=== PATIENT | female | born 1960 | race Caucasian/White ===

== ENCOUNTER 2022-03-09 12:48 | Inpatient (IN) ==
[2022-03-09 17:04] LABS: Albumin 3.7 G/DL (3.4-5.0); Bilirubin,Total 0.5 MG/DL (0.20-1.00); Calcium 9.3 MG/DL (8.5-10.1); Osmolality,Calculated 282.2 MOS/KG (273-304); Potassium 4.2 MMOL/L (3.5-5.1); Total Protein 7.5 G/DL (6.4-8.2)
[2022-03-09] MEDS ORDERED: SODIUM CHLORIDE 0.9% 1,000 ML IV STA (17:18)
[2022-03-09 17:26] LABS: Basophils # 0.1 10*3/uL (0.0-0.2); Eosinophils # 0.1 10*3/uL (0.0-0.87); Eosinophils % 1.3 % (0.00-10.9); Hematocrit 42.8 VOL% (35.7-47.0); Immature Granulocytes % 0.5 %; Immature Granulocytes Absolute 0.03 #; Lymphocytes # 1.9 10*3/uL (1.4-4.0); Lymphocytes % 31.5 % (21.3-54.2); Mean Corpuscular HGB Conc 32.7 GM/DL (32-36); Mean Corpuscular Volume 87.7 FL (87-102); Mean Platelet Volume 11.6 FL (9.6-12.0); Monocytes # 0.5 10*3/uL (0.11-0.8); Monocytes % 8.8 % (1.7-12.7); Neutrophils % 56.9 % (38.7-73.9); Platelet Count 221 T/CUMM (130-400); Red Blood Count 4.88 MC/CUMM (3.8-5.5); Red Cell Distribution Width 13.9 % (9.3-17.3); White Blood Count 6.1 T/CUMM (4-12)
[2022-03-09 17:35] LABS: INR 0.9; PT Patient Result 9.9 SECS (10.5-12.0); Partial Thromboplastin Time 21.5 SECS (23.7-32.9)
[2022-03-09 17:42] LABS: Bilirubin,Urine Negative (Negative); Blood, Urine Trace mg/dL (Negative); Glucose,Urine (UA) 500 mg/dL (Negative); Ketones,Urine 40 mg/dL (Negative); Nitrite,Urine Negative (Negative); Protein,Urine Negative (Negative); Urine Appearance Slightly Cloudy (Clear); Urine Color Yellow (Yellow); Urine Urobilinogen 0.2 eU/dL (<2.0); Urine pH 5.5 (4.5-8.0)
[2022-03-09 17:47] LABS: Mucus,Urine Occasional /LPF (Occasional); RBC,Urine 8 /HPF (0-4); Squamous Epithelial Cell,Urine Occasional /HPF (0-10)
[2022-03-09] MEDS ORDERED: KETOROLAC 30 MG/1 ML VIAL IV STA (17:48)
[2022-03-09] MEDS ORDERED: cloNIDine 0.1 MG TABLET PO STA (18:56)
[2022-03-09] MEDS ORDERED: INSULIN REGULAR 100 UNIT/ML IV STA (19:06)
[2022-03-09] MEDS ORDERED: GLUCAGON 1 MG VIAL IM PRN (19:28)
[2022-03-09] MEDS ORDERED: DOCUSATE SODIUM 100 MG CAPSULE PO PRN (19:28)
[2022-03-09] MEDS ORDERED: DEXTROSE 10% 250 ML BAG IV PRN (19:34)
[2022-03-09] MEDS ORDERED: DEXTROSE 50% 25 GM/50 ML VIAL IV PRN (19:38)
[2022-03-09] MEDS: ATORVASTATIN 40 MG TABLET PO SCH (22:52)
[2022-03-09] MEDS: ENOXAPARIN 40 MG/0.4 ML SYRINGE SUBCUT SCH (22:52)
[2022-03-09] MEDS: METOPROLOL TARTRATE 50 MG TABLET PO SCH (22:52)
[2022-03-09] MEDS: INSULIN GLARGINE 100 UNIT/ML SUBCUT SCH (22:53)
[2022-03-09] MEDS: MORPHINE 2 MG/1 ML SYRINGE IV PRN (22:58)
[2022-03-10] MEDS: MORPHINE 2 MG/1 ML SYRINGE IV PRN ×2 (03:01→12:54)
[2022-03-10 05:51] LABS: Basophils % 0.8 % (0.0-0.8); Eosinophils # 0.1 10*3/uL (0.0-0.87); Eosinophils % 1.8 % (0.00-10.9); Hematocrit 37.3 VOL% (35.7-47.0); Hemoglobin 12.1 GM/DL (12.0-16.0); Immature Granulocytes % 0.4 %; Immature Granulocytes Absolute 0.02 #; Lymphocytes # 2.2 10*3/uL (1.4-4.0); Lymphocytes % 43.8 % (21.3-54.2); Mean Corpuscular HGB Conc 32.4 GM/DL (32-36); Mean Corpuscular Volume 87.8 FL (87-102); Mean Platelet Volume 11.8 FL (9.6-12.0); Monocytes # 0.5 10*3/uL (0.11-0.8); Monocytes % 9.2 % (1.7-12.7); Platelet Count 200 T/CUMM (130-400); Red Blood Count 4.25 MC/CUMM (3.8-5.5); Red Cell Distribution Width 13.8 % (9.3-17.3)
[2022-03-10 06:51] LABS: Hepatitis B Core IgM Quant 0.05 Index; Hepatitis B Surface Ab Result Non-Reactive (NonReactive); Hepatitis B Surface Ag Quant < 0.10 Index; Hepatitis B Surface Ag Result Non-Reactive (NonReactive); Hepatitis C Virus Ab Quant 0.03 Index; Hepatitis C Virus Ab Result Non-Reactive (NonReactive)
[2022-03-10 09:36] LABS: Albumin 2.9 G/DL (3.4-5.0); Bilirubin,Total 0.4 MG/DL (0.20-1.00); Calcium 8.5 MG/DL (8.5-10.1); Osmolality,Calculated 281.8 MOS/KG (273-304); Potassium 3.4 MMOL/L (3.5-5.1); Total Protein 5.7 G/DL (6.4-8.2)
[2022-03-10] MEDS: INSULIN LISPRO 100 UNIT/ML SUBCUT SCH ×3 (10:01→17:09)
[2022-03-10] MEDS: PANTOPRAZOLE 40 MG VIAL IV SCH (10:01)
[2022-03-10] MEDS: FUROSEMIDE 40 MG/4 ML VIAL IV SCH (10:02)
[2022-03-10] MEDS: METOPROLOL TARTRATE 50 MG TABLET PO SCH ×2 (10:02→22:27)
[2022-03-10] MEDS: SERTRALINE 50 MG TABLET PO SCH (10:02)
[2022-03-10] MEDS: AMIODARONE 200 MG TABLET PO SCH (10:02)
[2022-03-10] MEDS: POTASSIUM CHLORIDE 20 MEQ TABLET PO SCH (10:03)
[2022-03-10] MEDS: ISOSORBIDE MONONITRATE 30 MG TABLET PO SCH (10:03)
[2022-03-10] MEDS: DILTIAZEM CD 240 MG CAPSULE PO SCH (10:03)
[2022-03-10] MEDS: ONDANSETRON 4 MG/2 ML VIAL IV PRN (12:56)
[2022-03-10] MEDS: ENOXAPARIN 40 MG/0.4 ML SYRINGE SUBCUT SCH (22:27)
[2022-03-10] MEDS: ATORVASTATIN 40 MG TABLET PO SCH (22:27)
[2022-03-10] MEDS: INSULIN GLARGINE 100 UNIT/ML SUBCUT SCH (22:33)
[2022-03-10] MEDS: ACETAMINOPHEN 325 MG TABLET PO PRN (23:32)
[2022-03-11 05:16] LABS: Basophils # 0.1 10*3/uL (0.0-0.2); Basophils % 0.8 % (0.0-0.8); Eosinophils # 0.1 10*3/uL (0.0-0.87); Eosinophils % 1.4 % (0.00-10.9); Hematocrit 38.4 VOL% (35.7-47.0); Hemoglobin 12.4 GM/DL (12.0-16.0); Immature Granulocytes % 0.5 %; Immature Granulocytes Absolute 0.03 #; Lymphocytes # 2.3 10*3/uL (1.4-4.0); Lymphocytes % 36.1 % (21.3-54.2); Mean Corpuscular HGB Conc 32.3 GM/DL (32-36); Mean Corpuscular Volume 88.1 FL (87-102); Mean Platelet Volume 11.2 FL (9.6-12.0); Monocytes # 0.7 10*3/uL (0.11-0.8); Monocytes % 10.7 % (1.7-12.7); Neutrophils % 50.5 % (38.7-73.9); Platelet Count 202 T/CUMM (130-400); Red Blood Count 4.36 MC/CUMM (3.8-5.5); Red Cell Distribution Width 13.7 % (9.3-17.3); White Blood Count 6.4 T/CUMM (4-12)
[2022-03-11 05:28] LABS: Alanine Aminotransferase 46 U/L (13-56); Albumin 2.8 G/DL (3.4-5.0); Alkaline Phosphatase 64 U/L (45-117); Aspartate Amino Transferase 19 U/L (0-37); Bilirubin,Total < 0.39 MG/DL (0.20-1.00); Blood Urea Nitrogen 21 MG/DL (7-18); Calcium 8.6 MG/DL (8.5-10.1); Carbon Dioxide 28 MMOL/L (21-32); Chloride 104 MMOL/L (98-107); Glucose 340 MG/DL (74-106); Osmolality,Calculated 290.7 MOS/KG (273-304); Potassium 3.4 MMOL/L (3.5-5.1); Sodium 138 MMOL/L (136-145); Total Protein 5.5 G/DL (6.4-8.2)
[2022-03-11] MEDS: INSULIN LISPRO 100 UNIT/ML SUBCUT SCH ×2 (11:22→14:26)
[2022-03-11] MEDS ORDERED: DEXTROSE 10% 250 ML BAG IV PRN (11:51)
[2022-03-11] MEDS ORDERED: INSULIN REGULAR 100 UNIT/ML SUBCUT ONE (11:52)
[2022-03-11] MEDS: INSULIN REGULAR 100 UNIT/ML SUBCUT SCH ×3 (13:03→20:27)
[2022-03-11] MEDS ORDERED: INSULIN GLARGINE 100 UNIT/ML SUBCUT ONE (13:15)
[2022-03-11] MEDS: FUROSEMIDE 40 MG/4 ML VIAL IV SCH (14:26)
[2022-03-11] MEDS: SERTRALINE 50 MG TABLET PO SCH (18:04)
[2022-03-11] MEDS: PANTOPRAZOLE 40 MG VIAL IV SCH (18:04)
[2022-03-11] MEDS: ISOSORBIDE MONONITRATE 30 MG TABLET PO SCH (18:05)
[2022-03-11] MEDS: DILTIAZEM CD 240 MG CAPSULE PO SCH (18:05)
[2022-03-11] MEDS: POTASSIUM CHLORIDE 20 MEQ TABLET PO SCH (18:05)
[2022-03-11] MEDS: AMIODARONE 200 MG TABLET PO SCH (18:05)
[2022-03-11] MEDS: METOPROLOL TARTRATE 50 MG TABLET PO SCH ×2 (18:42→20:26)
[2022-03-11] MEDS: ENOXAPARIN 40 MG/0.4 ML SYRINGE SUBCUT SCH (20:26)
[2022-03-11] MEDS: ATORVASTATIN 40 MG TABLET PO SCH (20:26)
[2022-03-11] MEDS: MORPHINE 2 MG/1 ML SYRINGE IV PRN (20:27)
[2022-03-11] MEDS: INSULIN GLARGINE 100 UNIT/ML SUBCUT SCH (20:27)
[2022-03-11] MEDS: ONDANSETRON 4 MG/2 ML VIAL IV PRN (23:08)
[2022-03-11] MEDS: ACETAMINOPHEN 325 MG TABLET PO PRN (23:08)
[2022-03-12 05:27] LABS: Basophils % 0.5 % (0.0-0.8); Eosinophils # 0.1 10*3/uL (0.0-0.87); Hematocrit 35.1 VOL% (35.7-47.0); Hemoglobin 11.1 GM/DL (12.0-16.0); Immature Granulocytes % 0.2 %; Immature Granulocytes Absolute 0.01 #; Lymphocytes # 2.4 10*3/uL (1.4-4.0); Mean Corpuscular HGB Conc 31.6 GM/DL (32-36); Mean Corpuscular Volume 89.5 FL (87-102); Mean Platelet Volume 11.5 FL (9.6-12.0); Monocytes # 0.5 10*3/uL (0.11-0.8); Monocytes % 8.4 % (1.7-12.7); Neutrophils % 46.9 % (38.7-73.9); Platelet Count 187 T/CUMM (130-400); Red Blood Count 3.92 MC/CUMM (3.8-5.5); Red Cell Distribution Width 14.1 % (9.3-17.3); White Blood Count 5.6 T/CUMM (4-12)
[2022-03-12 05:47] LABS: Alanine Aminotransferase 84 U/L (13-56); Albumin 2.6 G/DL (3.4-5.0); Alkaline Phosphatase 70 U/L (45-117); Aspartate Amino Transferase 55 U/L (0-37); Bilirubin,Total < 0.39 MG/DL (0.20-1.00); Blood Urea Nitrogen 26 MG/DL (7-18); Calcium 8.6 MG/DL (8.5-10.1); Carbon Dioxide 29 MMOL/L (21-32); Chloride 107 MMOL/L (98-107); Glucose 203 MG/DL (74-106); Osmolality,Calculated 293.1 MOS/KG (273-304); Potassium 3.6 MMOL/L (3.5-5.1); Sodium 142 MMOL/L (136-145); Total Protein 5.5 G/DL (6.4-8.2)
[2022-03-12] MEDS ORDERED: GLUCAGON 1 MG VIAL IM PRN (09:54)
[2022-03-12] MEDS ORDERED: DEXTROSE 50% 25 GM/50 ML VIAL IV PRN (09:54)
[2022-03-12] MEDS: DILTIAZEM CD 240 MG CAPSULE PO SCH (10:10)
[2022-03-12] MEDS: INSULIN REGULAR 100 UNIT/ML SUBCUT SCH ×4 (10:10→21:27)
[2022-03-12] MEDS: AMIODARONE 200 MG TABLET PO SCH (10:10)
[2022-03-12] MEDS: ISOSORBIDE MONONITRATE 30 MG TABLET PO SCH (10:10)
[2022-03-12] MEDS: METOPROLOL TARTRATE 50 MG TABLET PO SCH ×2 (10:11→21:27)
[2022-03-12] MEDS: POTASSIUM CHLORIDE 20 MEQ TABLET PO SCH (10:11)
[2022-03-12] MEDS: PANTOPRAZOLE 40 MG VIAL IV SCH (10:11)
[2022-03-12] MEDS: SERTRALINE 50 MG TABLET PO SCH (10:11)
[2022-03-12] MEDS: ATORVASTATIN 40 MG TABLET PO SCH (21:26)
[2022-03-12] MEDS: DOXYCYCLINE HYCLATE 100 MG CAPSULE PO SCH (21:26)
[2022-03-12] MEDS: ENOXAPARIN 40 MG/0.4 ML SYRINGE SUBCUT SCH (21:27)
[2022-03-12] MEDS: MORPHINE 2 MG/1 ML SYRINGE IV PRN (21:27)
[2022-03-12] MEDS: INSULIN GLARGINE 100 UNIT/ML SUBCUT SCH (21:28)
[2022-03-13 05:39] LABS: Basophils # 0.1 10*3/uL (0.0-0.2); Basophils % 0.7 % (0.0-0.8); Eosinophils # 0.1 10*3/uL (0.0-0.87); Eosinophils % 1.7 % (0.00-10.9); Hematocrit 37.1 VOL% (35.7-47.0); Hemoglobin 11.9 GM/DL (12.0-16.0); Immature Granulocytes % 0.5 %; Immature Granulocytes Absolute 0.04 #; Lymphocytes # 3.7 10*3/uL (1.4-4.0); Lymphocytes % 45.2 % (21.3-54.2); Mean Corpuscular HGB Conc 32.1 GM/DL (32-36); Mean Corpuscular Volume 88.8 FL (87-102); Mean Platelet Volume 11.6 FL (9.6-12.0); Monocytes # 0.8 10*3/uL (0.11-0.8); Neutrophils % 41.9 % (38.7-73.9); Platelet Count 240 T/CUMM (130-400); Red Blood Count 4.18 MC/CUMM (3.8-5.5); Red Cell Distribution Width 14.2 % (9.3-17.3); White Blood Count 8.2 T/CUMM (4-12)
[2022-03-13 06:09] LABS: Albumin 2.9 G/DL (3.4-5.0); Bilirubin,Total 0.4 MG/DL (0.20-1.00); Calcium 8.9 MG/DL (8.5-10.1); Osmolality,Calculated 279.5 MOS/KG (273-304); Potassium 3.4 MMOL/L (3.5-5.1); Total Protein 5.9 G/DL (6.4-8.2)
[2022-03-13] MEDS: INSULIN REGULAR 100 UNIT/ML SUBCUT SCH ×4 (07:29→21:32)
[2022-03-13] MEDS: DILTIAZEM CD 240 MG CAPSULE PO SCH (08:26)
[2022-03-13] MEDS: AMIODARONE 200 MG TABLET PO SCH (08:26)
[2022-03-13] MEDS: POTASSIUM CHLORIDE 20 MEQ TABLET PO SCH (08:26)
[2022-03-13] MEDS: ASPIRIN EC 81 MG TABLET PO SCH (08:26)
[2022-03-13] MEDS: ISOSORBIDE MONONITRATE 30 MG TABLET PO SCH (08:26)
[2022-03-13] MEDS: SERTRALINE 50 MG TABLET PO SCH (08:26)
[2022-03-13] MEDS: DOXYCYCLINE HYCLATE 100 MG CAPSULE PO SCH ×2 (08:26→21:31)
[2022-03-13] MEDS: METOPROLOL TARTRATE 50 MG TABLET PO SCH ×2 (08:26→21:32)
[2022-03-13] MEDS: ASCORBIC ACID 500 MG TABLET PO SCH ×2 (08:29→21:32)
[2022-03-13] MEDS ORDERED: PANTOPRAZOLE 40 MG TABLET PO SCH (09:00)
[2022-03-13] MEDS: MORPHINE 2 MG/1 ML SYRINGE IV PRN (21:31)
[2022-03-13] MEDS: INSULIN GLARGINE 100 UNIT/ML SUBCUT SCH (21:32)
[2022-03-13] MEDS: PANTOPRAZOLE 40 MG TABLET PO SCH (21:32)
[2022-03-13] MEDS: ATORVASTATIN 40 MG TABLET PO SCH (21:32)
[2022-03-14 04:16] LABS: Basophils # 0.1 10*3/uL (0.0-0.2); Basophils % 0.7 % (0.0-0.8); Eosinophils # 0.1 10*3/uL (0.0-0.87); Eosinophils % 1.4 % (0.00-10.9); Hemoglobin 11.9 GM/DL (12.0-16.0); Immature Granulocytes % 0.7 %; Immature Granulocytes Absolute 0.06 #; Lymphocytes # 2.6 10*3/uL (1.4-4.0); Lymphocytes % 29.4 % (21.3-54.2); Mean Corpuscular HGB Conc 32.2 GM/DL (32-36); Mean Platelet Volume 10.7 FL (9.6-12.0); Monocytes # 0.8 10*3/uL (0.11-0.8); Monocytes % 8.9 % (1.7-12.7); Neutrophils % 58.9 % (38.7-73.9); Platelet Count 223 T/CUMM (130-400); Red Blood Count 4.11 MC/CUMM (3.8-5.5); Red Cell Distribution Width 14.5 % (9.3-17.3); White Blood Count 8.7 T/CUMM (4-12)
[2022-03-14 04:36] LABS: Calcium 8.8 MG/DL (8.5-10.1); Osmolality,Calculated 280.4 MOS/KG (273-304); Potassium 3.7 MMOL/L (3.5-5.1)
[2022-03-14 04:41] LABS: Alanine Aminotransferase 205 U/L (13-56); Alkaline Phosphatase 82 U/L (45-117); Aspartate Amino Transferase 91 U/L (0-37); Bilirubin,Total < 0.39 MG/DL (0.20-1.00); Blood Urea Nitrogen 20 MG/DL (7-18); Carbon Dioxide 29 MMOL/L (21-32); Chloride 109 MMOL/L (98-107); Glucose 89 MG/DL (74-106); Osmolality,Calculated 280.4 MOS/KG (273-304); Potassium 3.8 MMOL/L (3.5-5.1); Sodium 140 MMOL/L (136-145)
[2022-03-14] MEDS: MORPHINE 2 MG/1 ML SYRINGE IV PRN ×3 (05:46→18:33)
[2022-03-14] MEDS ORDERED: LACTATED RINGERS 1,000 ML IV SCH (08:00)
[2022-03-14] MEDS: INSULIN REGULAR 100 UNIT/ML SUBCUT SCH ×4 (08:09→22:13)
[2022-03-14] MEDS ORDERED: LIDOCAINE 2% 5 ML VIAL ONE (13:21)
[2022-03-14] MEDS ORDERED: propofoL 200 MG/20 ML VIAL IV ONE (13:21)
[2022-03-14] MEDS ORDERED: ONDANSETRON 4 MG/2 ML VIAL ONE (13:48)
[2022-03-14] MEDS: ONDANSETRON 4 MG/2 ML VIAL IV PRN (13:49)
[2022-03-14] MEDS: DILTIAZEM CD 240 MG CAPSULE PO SCH (15:04)
[2022-03-14] MEDS: METOPROLOL TARTRATE 50 MG TABLET PO SCH ×2 (15:04→22:13)
[2022-03-14] MEDS: SERTRALINE 50 MG TABLET PO SCH (17:24)
[2022-03-14] MEDS: ISOSORBIDE MONONITRATE 30 MG TABLET PO SCH (17:24)
[2022-03-14] MEDS: ASPIRIN EC 81 MG TABLET PO SCH (17:24)
[2022-03-14] MEDS: ASCORBIC ACID 500 MG TABLET PO SCH ×2 (17:24→22:13)
[2022-03-14] MEDS: DOXYCYCLINE HYCLATE 100 MG CAPSULE PO SCH ×2 (17:25→22:13)
[2022-03-14] MEDS: PANTOPRAZOLE 40 MG TABLET PO SCH ×2 (17:25→22:13)
[2022-03-14] MEDS: POTASSIUM CHLORIDE 20 MEQ TABLET PO SCH (17:25)
[2022-03-14] MEDS: ATORVASTATIN 40 MG TABLET PO SCH (22:13)
[2022-03-14] MEDS: INSULIN GLARGINE 100 UNIT/ML SUBCUT SCH (22:13)
[2022-03-15] MEDS: MORPHINE 2 MG/1 ML SYRINGE IV PRN (03:59)
[2022-03-15 04:25] LABS: Basophils % 0.5 % (0.0-0.8); Eosinophils # 0.1 10*3/uL (0.0-0.87); Eosinophils % 0.9 % (0.00-10.9); Hematocrit 37.3 VOL% (35.7-47.0); Hemoglobin 11.7 GM/DL (12.0-16.0); Immature Granulocytes % 0.5 %; Immature Granulocytes Absolute 0.04 #; Lymphocytes # 1.3 10*3/uL (1.4-4.0); Lymphocytes % 16.6 % (21.3-54.2); Mean Corpuscular HGB Conc 31.4 GM/DL (32-36); Mean Corpuscular Volume 91.6 FL (87-102); Mean Platelet Volume 10.6 FL (9.6-12.0); Monocytes # 0.7 10*3/uL (0.11-0.8); Monocytes % 9.1 % (1.7-12.7); Neutrophils % 72.4 % (38.7-73.9); Platelet Count 197 T/CUMM (130-400); Red Blood Count 4.07 MC/CUMM (3.8-5.5); Red Cell Distribution Width 14.5 % (9.3-17.3); White Blood Count 7.8 T/CUMM (4-12)
[2022-03-15] MEDS: ONDANSETRON 4 MG/2 ML VIAL IV PRN (04:38)
[2022-03-15 04:47] LABS: Calcium 8.6 MG/DL (8.5-10.1); Osmolality,Calculated 283.7 MOS/KG (273-304)
[2022-03-15 05:00] LABS: Bilirubin,Total 0.4 MG/DL (0.20-1.00); Calcium 8.7 MG/DL (8.5-10.1); Osmolality,Calculated 285.5 MOS/KG (273-304); Total Protein 6.2 G/DL (6.4-8.2)
[2022-03-15] MEDS: INSULIN REGULAR 100 UNIT/ML SUBCUT SCH ×4 (08:21→21:37)
[2022-03-15] MEDS ORDERED: BUPIVACAINE MPF 0.25% 10 ML VIAL ONE ×2 (09:45→13:45)
[2022-03-15] MEDS ORDERED: TISSUE ADHESIVE 1 EACH APPLICATOR TOP ONE ×2 (09:45→13:45)
[2022-03-15] MEDS ORDERED: LIDOCAINE 1%/EPI INJ 20 ML VIAL ONE ×2 (09:45→13:45)
[2022-03-15] MEDS: cefTRIAXone 2,000 MG in SODIUM CHLORIDE 0.9% 100 ML IV SCH (11:27)
[2022-03-15] MEDS: DILTIAZEM CD 240 MG CAPSULE PO SCH (11:27)
[2022-03-15] MEDS: METOPROLOL TARTRATE 50 MG TABLET PO SCH ×2 (11:27→21:37)
[2022-03-15] MEDS: ASPIRIN EC 81 MG TABLET PO SCH (11:27)
[2022-03-15] MEDS: ISOSORBIDE MONONITRATE 30 MG TABLET PO SCH (11:27)
[2022-03-15] MEDS ORDERED: LACTATED RINGERS 1,000 ML IV SCH (13:30)
[2022-03-15] MEDS ORDERED: MIDAZOLAM 2 MG/2 ML VIAL ONE (13:35)
[2022-03-15] MEDS ORDERED: LIDOCAINE 2% 5 ML VIAL ONE (13:35)
[2022-03-15] MEDS ORDERED: fentaNYL 100 MCG/2 ML VIAL ONE (13:35)
[2022-03-15] MEDS ORDERED: propofoL 200 MG/20 ML VIAL IV ONE (13:35)
[2022-03-15] MEDS ORDERED: DEXAMETHASONE 4 MG/1 ML VIAL ONE (13:35)
[2022-03-15] MEDS ORDERED: ONDANSETRON 4 MG/2 ML VIAL ONE (13:35)
[2022-03-15] MEDS ORDERED: KETOROLAC 30 MG/1 ML VIAL ONE (13:35)
[2022-03-15] MEDS ORDERED: ROCURONIUM 50 MG/5 ML VIAL IV ONE (13:35)
[2022-03-15] MEDS ORDERED: SEVOFLURANE 1 UNIT/15 MINUTE INH ONE (13:35)
[2022-03-15] MEDS ORDERED: diphenhydrAMINE 50 MG/1 ML VIAL IV PRN (15:09)
[2022-03-15] MEDS ORDERED: MEPERIDINE 25 MG/1 ML VIAL IV PRN (15:09)
[2022-03-15] MEDS ORDERED: ONDANSETRON 4 MG/2 ML VIAL IV PRN (15:09)
[2022-03-15] MEDS ORDERED: HYDROmorphone 1 MG/1 ML SYRINGE IV PRN (15:09)
[2022-03-15] MEDS ORDERED: PROMETHAZINE INJ 25 MG in SODIUM CHLORIDE 0.9% 50 ML IV PRN (15:09)
[2022-03-15] MEDS: SERTRALINE 50 MG TABLET PO SCH (17:02)
[2022-03-15] MEDS: POTASSIUM CHLORIDE 20 MEQ TABLET PO SCH (17:02)
[2022-03-15] MEDS: ASCORBIC ACID 500 MG TABLET PO SCH ×2 (17:02→21:37)
[2022-03-15] MEDS: PANTOPRAZOLE 40 MG TABLET PO SCH ×2 (17:02→21:37)
[2022-03-15] MEDS: INSULIN GLARGINE 100 UNIT/ML SUBCUT SCH (21:37)
[2022-03-15] MEDS: ATORVASTATIN 40 MG TABLET PO SCH (21:37)
[2022-03-16 05:42] LABS: Basophils % 0.2 % (0.0-0.8); Hematocrit 40.3 VOL% (35.7-47.0); Hemoglobin 12.7 GM/DL (12.0-16.0); Immature Granulocytes % 0.7 %; Immature Granulocytes Absolute 0.06 #; Lymphocytes # 1.2 10*3/uL (1.4-4.0); Lymphocytes % 13.7 % (21.3-54.2); Mean Corpuscular HGB Conc 31.5 GM/DL (32-36); Mean Platelet Volume 11.8 FL (9.6-12.0); Monocytes # 0.7 10*3/uL (0.11-0.8); Monocytes % 7.9 % (1.7-12.7); Neutrophils % 77.5 % (38.7-73.9); Platelet Count 192 T/CUMM (130-400); Red Blood Count 4.43 MC/CUMM (3.8-5.5); Red Cell Distribution Width 14.1 % (9.3-17.3); White Blood Count 8.5 T/CUMM (4-12)
[2022-03-16 05:59] LABS: Calcium 8.9 MG/DL (8.5-10.1); Osmolality,Calculated 288.5 MOS/KG (273-304); Potassium 4.8 MMOL/L (3.5-5.1)
[2022-03-16] MEDS: cefTRIAXone 2,000 MG in SODIUM CHLORIDE 0.9% 100 ML IV SCH (09:35)
[2022-03-16] MEDS: PANTOPRAZOLE 40 MG TABLET PO SCH ×2 (09:36→21:58)
[2022-03-16] MEDS: ASCORBIC ACID 500 MG TABLET PO SCH ×2 (09:36→21:58)
[2022-03-16] MEDS: ISOSORBIDE MONONITRATE 30 MG TABLET PO SCH (09:36)
[2022-03-16] MEDS: ASPIRIN EC 81 MG TABLET PO SCH (09:36)
[2022-03-16] MEDS: POTASSIUM CHLORIDE 20 MEQ TABLET PO SCH (09:37)
[2022-03-16] MEDS: SERTRALINE 50 MG TABLET PO SCH (09:37)
[2022-03-16] MEDS: DILTIAZEM CD 240 MG CAPSULE PO SCH (09:37)
[2022-03-16] MEDS: METOPROLOL TARTRATE 50 MG TABLET PO SCH ×2 (09:37→21:57)
[2022-03-16] MEDS: INSULIN REGULAR 100 UNIT/ML SUBCUT SCH ×4 (09:38→21:58)
[2022-03-16] MEDS: MORPHINE 2 MG/1 ML SYRINGE IV PRN (21:57)
[2022-03-16] MEDS: ATORVASTATIN 40 MG TABLET PO SCH (21:58)
[2022-03-16] MEDS: INSULIN GLARGINE 100 UNIT/ML SUBCUT SCH (21:58)
[2022-03-17 06:12] LABS: Albumin 2.5 G/DL (3.4-5.0); Bilirubin,Total 0.4 MG/DL (0.20-1.00); Calcium 8.4 MG/DL (8.5-10.1); Osmolality,Calculated 283.7 MOS/KG (273-304); Potassium 3.9 MMOL/L (3.5-5.1); Total Protein 5.9 G/DL (6.4-8.2)
[2022-03-17] MEDS: DILTIAZEM CD 240 MG CAPSULE PO SCH (09:06)
[2022-03-17] MEDS: ISOSORBIDE MONONITRATE 30 MG TABLET PO SCH (09:06)
[2022-03-17] MEDS: METOPROLOL TARTRATE 50 MG TABLET PO SCH (09:06)
[2022-03-17] MEDS: ASCORBIC ACID 500 MG TABLET PO SCH (09:06)
[2022-03-17] MEDS: POTASSIUM CHLORIDE 20 MEQ TABLET PO SCH (09:06)
[2022-03-17] MEDS: SERTRALINE 50 MG TABLET PO SCH (09:07)
[2022-03-17] MEDS: INSULIN REGULAR 100 UNIT/ML SUBCUT SCH ×2 (09:07→11:44)
[2022-03-17] MEDS: PANTOPRAZOLE 40 MG TABLET PO SCH (09:07)
[2022-03-17] MEDS: ASPIRIN EC 81 MG TABLET PO SCH (09:07)
[2022-03-17] MEDS: cefTRIAXone 2,000 MG in SODIUM CHLORIDE 0.9% 100 ML IV SCH (09:11)
[2022-03-17 12:33] VITALS: BP 143/80
== END 2022-03-17 12:06 | disposition home or self-care (01) | DRG 417 ==
LOC: N.ED 12:48 → N.TELES 19:28 → SUATTDRO 19:28 → N.TELES 21:53
PROVIDERS: ADMIT Family Medicine; ATTEND Emergency Medicine
PROC: LAPCHOL (2022-03-15 13:57)

== ENCOUNTER 2022-08-07 18:46 | Inpatient (IN) ==
[2022-08-07 19:15] LABS: Basophils # 0.1 10*3/uL (0.0-0.2); Basophils % 1.2 % (0.0-0.8); Eosinophils # 0.4 10*3/uL (0.0-0.87); Eosinophils % 5.5 % (0.00-10.9); Hemoglobin 9.9 GM/DL (12.0-16.0); Immature Granulocytes % 0.5 %; Immature Granulocytes Absolute 0.04 #; Lymphocytes # 1.8 10*3/uL (1.4-4.0); Lymphocytes % 23.9 % (21.3-54.2); Mean Corpuscular HGB Conc 30.9 GM/DL (32-36); Mean Corpuscular Volume 89.6 FL (87-102); Mean Platelet Volume 10.2 FL (9.6-12.0); Monocytes # 0.6 10*3/uL (0.11-0.8); Monocytes % 8.2 % (1.7-12.7); NRBC # 0.02 10*3/uL; Neutrophils % 60.7 % (38.7-73.9); Platelet Count 334 T/CUMM (130-400); Red Blood Count 3.57 MC/CUMM (3.8-5.5); Red Cell Distribution Width 16.4 % (9.3-17.3); White Blood Count 7.5 T/CUMM (4-12)
[2022-08-07 19:37] LABS: Albumin 3.1 G/DL (3.4-5.0); Bilirubin,Total 1.4 MG/DL (0.20-1.00); Calcium 8.9 MG/DL (8.5-10.1); Osmolality,Calculated 285.8 MOS/KG (273-304); Potassium 4.6 MMOL/L (3.5-5.1); Total Protein 6.4 G/DL (6.4-8.2)
[2022-08-07] MEDS ORDERED: cefTRIAXone 1,000 MG in SODIUM CHLORIDE 0.9% 100 ML IV STA (22:41)
[2022-08-07] MEDS ORDERED: SODIUM CHLORIDE 0.9% 1,000 ML IV STA (22:43)
[2022-08-07 22:46] LABS: PT Patient Result 11.5 SECS (10.1-12.1); Partial Thromboplastin Time 22.2 SECS (23.7-32.9)
[2022-08-07 23:55] LABS: Bacteria,Urine Occasional /HPF (Few); RBC,Urine 4 /HPF (0-4); Squamous Epithelial Cell,Urine Occasional /HPF (0-10)
[2022-08-07 23:56] LABS: Bilirubin,Urine Negative (Negative); Blood, Urine Trace mg/dL (Negative); Glucose,Urine (UA) >=1000 mg/dL (Negative); Ketones,Urine Negative (Negative); Nitrite,Urine Negative (Negative); Protein,Urine Negative (Negative); Urine Appearance Clear (Clear); Urine Color Yellow (Yellow); Urine Urobilinogen 0.2 eU/dL (<2.0)
[2022-08-08] MEDS ORDERED: SODIUM CHLORIDE 0.9% 1,000 ML IV STA (00:07)
[2022-08-08] MEDS ORDERED: PROMETHAZINE 25 MG/1 ML VIAL IV STA (00:08)
[2022-08-08] MEDS ORDERED: PROMETHAZINE 25 MG/1 ML VIAL IM STA (00:20)
[2022-08-08] MEDS ORDERED: SIMETHICONE CHEW 125 MG TABLET PO PRN (02:33)
[2022-08-08] MEDS ORDERED: ONDANSETRON 4 MG/2 ML VIAL IV PRN (02:33)
[2022-08-08] MEDS ORDERED: DEXTROSE 10% 250 ML BAG IV PRN (02:45)
[2022-08-08] MEDS ORDERED: GLUCAGON 1 MG VIAL IM PRN (02:45)
[2022-08-08 03:57] LABS: Basophils # 0.1 10*3/uL (0.0-0.2); Eosinophils # 0.5 10*3/uL (0.0-0.87); Eosinophils % 6.6 % (0.00-10.9); Hematocrit 32.9 VOL% (35.7-47.0); Hemoglobin 10.1 GM/DL (12.0-16.0); Immature Granulocytes % 0.6 %; Immature Granulocytes Absolute 0.04 #; Mean Corpuscular HGB Conc 30.7 GM/DL (32-36); Mean Corpuscular Volume 89.4 FL (87-102); Mean Platelet Volume 10.2 FL (9.6-12.0); Monocytes # 0.6 10*3/uL (0.11-0.8); Monocytes % 9.2 % (1.7-12.7); Neutrophils % 53.6 % (38.7-73.9); Platelet Count 317 T/CUMM (130-400); Red Blood Count 3.68 MC/CUMM (3.8-5.5); Red Cell Distribution Width 16.4 % (9.3-17.3); White Blood Count 6.9 T/CUMM (4-12)
[2022-08-08] MEDS: hydrALAZINE 20 MG/1 ML VIAL IV PRN (04:13)
[2022-08-08] MEDS: FUROSEMIDE 40 MG/4 ML VIAL IV SCH ×2 (04:22→09:35)
[2022-08-08 04:29] LABS: Risk Ratio 3.7; VLDL Cholesterol 18.8 MG/DL
[2022-08-08 04:30] LABS: % Iron Saturation 10.7 % (18-50); Ferritin 153.6 ng/mL (8-252)
[2022-08-08 04:32] LABS: Folate 6.26 NG/ML (5.38-24.0); Vitamin B12 593 PG/ML (211-911)
[2022-08-08 05:06] LABS: Sedimentation Rate-Westergren 52 MM/HR (0-30)
[2022-08-08] MEDS: ALBUTEROL 2.5 MG/3 ML NEB RESP TX SCH ×4 (07:35→21:12)
[2022-08-08] MEDS ORDERED: APIXABAN 5 MG TABLET PO SCH (09:00)
[2022-08-08] MEDS: INSULIN REGULAR 100 UNIT/ML SUBCUT SCH ×4 (09:28→21:58)
[2022-08-08] MEDS: PANTOPRAZOLE 40 MG TABLET PO SCH (09:34)
[2022-08-08] MEDS: guaiFENesin/DM ER 600-30 MG TABLET PO SCH ×2 (09:35→21:53)
[2022-08-08] MEDS: ISOSORBIDE MONONITRATE 30 MG TABLET PO SCH (09:35)
[2022-08-08] MEDS: DOCUSATE SODIUM 100 MG CAPSULE PO SCH ×2 (09:35→21:53)
[2022-08-08] MEDS: SERTRALINE 25 MG TABLET PO SCH (09:36)
[2022-08-08] MEDS: DILTIAZEM CD 240 MG CAPSULE PO SCH (11:44)
[2022-08-08] MEDS: ACETAMINOPHEN 325 MG TABLET PO PRN (12:36)
[2022-08-08] MEDS: traMADol 50 MG TABLET PO PRN (17:13)
[2022-08-09] MEDS: ALBUTEROL 2.5 MG/3 ML NEB RESP TX SCH ×4 (01:46→19:40)
[2022-08-09 05:59] LABS: Basophils # 0.1 10*3/uL (0.0-0.2); Basophils % 1.1 % (0.0-0.8); Eosinophils # 0.4 10*3/uL (0.0-0.87); Eosinophils % 6.7 % (0.00-10.9); Hematocrit 29.9 VOL% (35.7-47.0); Hemoglobin 9.3 GM/DL (12.0-16.0); Immature Granulocytes % 0.5 %; Immature Granulocytes Absolute 0.03 #; Lymphocytes # 1.5 10*3/uL (1.4-4.0); Lymphocytes % 23.5 % (21.3-54.2); Mean Corpuscular HGB Conc 31.1 GM/DL (32-36); Mean Corpuscular Volume 90.1 FL (87-102); Monocytes # 0.6 10*3/uL (0.11-0.8); Monocytes % 9.9 % (1.7-12.7); Neutrophils % 58.3 % (38.7-73.9); Platelet Count 276 T/CUMM (130-400); Red Blood Count 3.32 MC/CUMM (3.8-5.5); White Blood Count 6.3 T/CUMM (4-12)
[2022-08-09 06:43] LABS: Calcium 7.9 MG/DL (8.5-10.1); Osmolality,Calculated 280.2 MOS/KG (273-304)
[2022-08-09] MEDS: INSULIN REGULAR 100 UNIT/ML SUBCUT SCH ×4 (08:44→21:26)
[2022-08-09] MEDS: ISOSORBIDE MONONITRATE 30 MG TABLET PO SCH (08:45)
[2022-08-09] MEDS: VALSARTAN 80 MG TABLET PO SCH (08:45)
[2022-08-09] MEDS: DOCUSATE SODIUM 100 MG CAPSULE PO SCH ×2 (08:45→21:25)
[2022-08-09] MEDS: SERTRALINE 25 MG TABLET PO SCH (08:45)
[2022-08-09] MEDS: PANTOPRAZOLE 40 MG TABLET PO SCH (08:45)
[2022-08-09] MEDS: DILTIAZEM CD 240 MG CAPSULE PO SCH (08:49)
[2022-08-09] MEDS: FUROSEMIDE 40 MG/4 ML VIAL IV SCH ×2 (08:50→16:16)
[2022-08-09 09:12] LABS: Hemoglobin A1 (Alkaline) 98.2 % (96.5-98.5); Hemoglobin A2 (Alkaline) 1.8 % (1.5-3.5)
[2022-08-09] MEDS: guaiFENesin/DM ER 600-30 MG TABLET PO SCH ×2 (09:47→21:26)
[2022-08-09] MEDS: POTASSIUM CHLORIDE 20 MEQ TABLET PO SCH ×2 (11:42→21:25)
[2022-08-09] MEDS: INSULIN GLARGINE 100 UNIT/ML SUBCUT SCH (21:25)
[2022-08-09] MEDS: APIXABAN 2.5 MG TABLET PO SCH (21:26)
[2022-08-09] MEDS: MELATONIN 3 MG TABLET PO PRN (23:04)
[2022-08-10] MEDS: ALBUTEROL 2.5 MG/3 ML NEB RESP TX SCH ×4 (00:07→20:01)
[2022-08-10] MEDS: hydrALAZINE 20 MG/1 ML VIAL IV PRN (00:09)
[2022-08-10] MEDS: traMADol 50 MG TABLET PO PRN (00:42)
[2022-08-10 06:30] LABS: Basophils # 0.1 10*3/uL (0.0-0.2); Basophils % 0.9 % (0.0-0.8); Eosinophils # 0.4 10*3/uL (0.0-0.87); Eosinophils % 5.7 % (0.00-10.9); Hematocrit 31.1 VOL% (35.7-47.0); Hemoglobin 9.7 GM/DL (12.0-16.0); Immature Granulocytes % 0.6 %; Immature Granulocytes Absolute 0.04 #; Lymphocytes # 1.3 10*3/uL (1.4-4.0); Lymphocytes % 20.4 % (21.3-54.2); Mean Corpuscular HGB Conc 31.2 GM/DL (32-36); Mean Corpuscular Volume 89.6 FL (87-102); Mean Platelet Volume 10.8 FL (9.6-12.0); Monocytes # 0.7 10*3/uL (0.11-0.8); Neutrophils % 62.4 % (38.7-73.9); Platelet Count 313 T/CUMM (130-400); Red Blood Count 3.47 MC/CUMM (3.8-5.5); White Blood Count 6.5 T/CUMM (4-12)
[2022-08-10 06:48] LABS: Calcium 8.1 MG/DL (8.5-10.1); Osmolality,Calculated 283.8 MOS/KG (273-304); Potassium 3.9 MMOL/L (3.5-5.1)
[2022-08-10] MEDS ORDERED: VALSARTAN 80 MG TABLET PO ONE (09:27)
[2022-08-10] MEDS: INSULIN REGULAR 100 UNIT/ML SUBCUT SCH ×4 (09:38→20:50)
[2022-08-10] MEDS: DAPAGLIFLOZIN 10 MG TABLET PO SCH (09:38)
[2022-08-10] MEDS: LINACLOTIDE 145 MCG CAPSULE PO SCH (09:38)
[2022-08-10] MEDS: FUROSEMIDE 40 MG/4 ML VIAL IV SCH ×2 (09:38→16:47)
[2022-08-10] MEDS: POTASSIUM CHLORIDE 20 MEQ TABLET PO SCH ×2 (09:39→20:51)
[2022-08-10] MEDS: DILTIAZEM CD 240 MG CAPSULE PO SCH (09:39)
[2022-08-10] MEDS: SERTRALINE 25 MG TABLET PO SCH (09:39)
[2022-08-10] MEDS: ISOSORBIDE MONONITRATE 30 MG TABLET PO SCH (09:40)
[2022-08-10] MEDS: PANTOPRAZOLE 40 MG TABLET PO SCH (09:40)
[2022-08-10] MEDS: guaiFENesin/DM ER 600-30 MG TABLET PO SCH ×2 (09:40→20:56)
[2022-08-10] MEDS: DOCUSATE SODIUM 100 MG CAPSULE PO SCH ×2 (09:40→20:51)
[2022-08-10] MEDS: FERROUS SULFATE 325 MG TABLET PO SCH (09:40)
[2022-08-10] MEDS: VALSARTAN 80 MG TABLET PO SCH (09:47)
[2022-08-10] MEDS: APIXABAN 2.5 MG TABLET PO SCH ×2 (10:36→20:51)
[2022-08-10] MEDS ORDERED: MAGNESIUM SULF RIDER 2 GM/50 ML PREMIX IV ONE (11:09)
[2022-08-10] MEDS: KETOROLAC 30 MG/1 ML VIAL IV PRN ×2 (14:55→20:51)
[2022-08-10 15:13] LABS: Lymphocytes,Pleural Fluid 77 %; Monocytes,Pleural Fluid 20 %; Neutrophils,Pleural Fluid 3 %
[2022-08-10 15:15] LABS: RBC,Pleural Fluid 2121 T/CUMM
[2022-08-10 15:31] LABS: Glucose,Pleural Fluid 330 MG/DL; LDH,Body Fluid 89 U/L; Total Protein,Body Fluid < 2.0 G/DL
[2022-08-10] MEDS: MELATONIN 3 MG TABLET PO PRN (20:50)
[2022-08-10] MEDS: INSULIN GLARGINE 100 UNIT/ML SUBCUT SCH (20:52)
[2022-08-11] MEDS: ALBUTEROL 2.5 MG/3 ML NEB RESP TX SCH ×4 (00:37→19:45)
[2022-08-11 06:00] LABS: Basophils % 0.5 % (0.0-0.8); Eosinophils # 0.4 10*3/uL (0.0-0.87); Eosinophils % 5.8 % (0.00-10.9); Hemoglobin 9.1 GM/DL (12.0-16.0); Immature Granulocytes % 0.6 %; Immature Granulocytes Absolute 0.04 #; Lymphocytes # 1.3 10*3/uL (1.4-4.0); Lymphocytes % 20.2 % (21.3-54.2); Mean Corpuscular HGB Conc 30.3 GM/DL (32-36); Mean Corpuscular Volume 89.8 FL (87-102); Mean Platelet Volume 10.2 FL (9.6-12.0); Monocytes # 0.5 10*3/uL (0.11-0.8); Monocytes % 8.2 % (1.7-12.7); Neutrophils % 64.7 % (38.7-73.9); Platelet Count 325 T/CUMM (130-400); Red Blood Count 3.34 MC/CUMM (3.8-5.5); Red Cell Distribution Width 16.2 % (9.3-17.3); White Blood Count 6.3 T/CUMM (4-12)
[2022-08-11 06:17] LABS: Calcium 8.5 MG/DL (8.5-10.1); Potassium 3.9 MMOL/L (3.5-5.1)
[2022-08-11] MEDS: INSULIN REGULAR 100 UNIT/ML SUBCUT SCH ×4 (08:04→22:03)
[2022-08-11] MEDS: LINACLOTIDE 145 MCG CAPSULE PO SCH (09:04)
[2022-08-11] MEDS: PANTOPRAZOLE 40 MG TABLET PO SCH (09:06)
[2022-08-11] MEDS: ISOSORBIDE MONONITRATE 30 MG TABLET PO SCH (09:06)
[2022-08-11] MEDS: VALSARTAN 80 MG TABLET PO SCH (09:06)
[2022-08-11] MEDS: guaiFENesin/DM ER 600-30 MG TABLET PO SCH ×2 (09:06→20:32)
[2022-08-11] MEDS: FERROUS SULFATE 325 MG TABLET PO SCH (09:06)
[2022-08-11] MEDS: APIXABAN 2.5 MG TABLET PO SCH ×2 (09:06→20:31)
[2022-08-11] MEDS: SERTRALINE 25 MG TABLET PO SCH (09:06)
[2022-08-11] MEDS: POTASSIUM CHLORIDE 20 MEQ TABLET PO SCH ×2 (09:06→20:31)
[2022-08-11] MEDS: DILTIAZEM CD 240 MG CAPSULE PO SCH (09:07)
[2022-08-11] MEDS: DOCUSATE SODIUM 100 MG CAPSULE PO SCH ×2 (09:07→20:32)
[2022-08-11] MEDS: FUROSEMIDE 40 MG/4 ML VIAL IV SCH ×2 (09:08→16:30)
[2022-08-11] MEDS: DAPAGLIFLOZIN 10 MG TABLET PO SCH (09:37)
[2022-08-11] MEDS: metOLazone 5 MG TABLET PO SCH (09:37)
[2022-08-11] MEDS ORDERED: LACTULOSE 20 GM/30 ML UDCUP PO ONE ×2 (18:38→21:00)
[2022-08-11] MEDS: POLYETHYLENE GLYCOL POWDER 17 GM PACK PO SCH (20:31)
[2022-08-11] MEDS: ZALEPLON 5 MG CAPSULE PO PRN (20:31)
[2022-08-11] MEDS: KETOROLAC 30 MG/1 ML VIAL IV PRN (20:34)
[2022-08-11] MEDS: INSULIN GLARGINE 100 UNIT/ML SUBCUT SCH (22:03)
[2022-08-11] MEDS: SENNA 8.6 MG TABLET PO SCH (22:05)
[2022-08-11] MEDS: traMADol 50 MG TABLET PO PRN (22:08)
[2022-08-12] MEDS: ALBUTEROL 2.5 MG/3 ML NEB RESP TX SCH ×5 (00:06→23:55)
[2022-08-12 04:57] LABS: Basophils # 0.1 10*3/uL (0.0-0.2); Basophils % 0.7 % (0.0-0.8); Eosinophils # 0.7 10*3/uL (0.0-0.87); Eosinophils % 9.9 % (0.00-10.9); Hematocrit 29.5 VOL% (35.7-47.0); Hemoglobin 9.2 GM/DL (12.0-16.0); Immature Granulocytes % 0.6 %; Immature Granulocytes Absolute 0.04 #; Lymphocytes # 1.8 10*3/uL (1.4-4.0); Lymphocytes % 25.1 % (21.3-54.2); Mean Corpuscular HGB Conc 31.2 GM/DL (32-36); Mean Corpuscular Volume 88.6 FL (87-102); Monocytes # 0.7 10*3/uL (0.11-0.8); Neutrophils % 54.7 % (38.7-73.9); Platelet Count 308 T/CUMM (130-400); Red Blood Count 3.33 MC/CUMM (3.8-5.5); Red Cell Distribution Width 15.9 % (9.3-17.3); White Blood Count 7.2 T/CUMM (4-12)
[2022-08-12 05:18] LABS: Calcium 8.6 MG/DL (8.5-10.1); Osmolality,Calculated 279.2 MOS/KG (273-304); Potassium 4.1 MMOL/L (3.5-5.1)
[2022-08-12] MEDS: POLYETHYLENE GLYCOL POWDER 17 GM PACK PO SCH ×2 (09:24→20:24)
[2022-08-12] MEDS: LINACLOTIDE 145 MCG CAPSULE PO SCH (09:26)
[2022-08-12] MEDS: POTASSIUM CHLORIDE 20 MEQ TABLET PO SCH ×2 (09:27→20:22)
[2022-08-12] MEDS: CHOLECALCIFEROL 1,000 UNIT TABLET PO SCH (09:28)
[2022-08-12] MEDS: PANTOPRAZOLE 40 MG TABLET PO SCH (09:29)
[2022-08-12] MEDS: SERTRALINE 25 MG TABLET PO SCH (09:29)
[2022-08-12] MEDS: guaiFENesin/DM ER 600-30 MG TABLET PO SCH ×2 (09:30→20:22)
[2022-08-12] MEDS: DOCUSATE SODIUM 100 MG CAPSULE PO SCH ×2 (09:30→20:22)
[2022-08-12] MEDS: DAPAGLIFLOZIN 10 MG TABLET PO SCH (09:31)
[2022-08-12] MEDS: metOLazone 5 MG TABLET PO SCH (09:31)
[2022-08-12] MEDS: VALSARTAN 80 MG TABLET PO SCH (09:31)
[2022-08-12] MEDS: FERROUS SULFATE 325 MG TABLET PO SCH (09:32)
[2022-08-12] MEDS: ISOSORBIDE MONONITRATE 30 MG TABLET PO SCH (09:32)
[2022-08-12] MEDS: DILTIAZEM CD 240 MG CAPSULE PO SCH (09:32)
[2022-08-12] MEDS: INSULIN REGULAR 100 UNIT/ML SUBCUT SCH ×4 (09:33→20:25)
[2022-08-12] MEDS: APIXABAN 2.5 MG TABLET PO SCH ×2 (09:33→20:22)
[2022-08-12] MEDS: FUROSEMIDE 40 MG/4 ML VIAL IV SCH ×2 (09:37→17:32)
[2022-08-12] MEDS: SENNA 8.6 MG TABLET PO SCH (20:22)
[2022-08-12] MEDS: ZALEPLON 5 MG CAPSULE PO PRN (20:22)
[2022-08-12] MEDS: traMADol 50 MG TABLET PO PRN (20:23)
[2022-08-12] MEDS: INSULIN GLARGINE 100 UNIT/ML SUBCUT SCH (20:25)
[2022-08-13] MEDS: ALBUTEROL 2.5 MG/3 ML NEB RESP TX SCH ×3 (07:26→20:15)
[2022-08-13 08:08] LABS: Basophils # 0.1 10*3/uL (0.0-0.2); Eosinophils % 14.7 % (0.00-10.9); Hematocrit 33.8 VOL% (35.7-47.0); Hemoglobin 10.3 GM/DL (12.0-16.0); Immature Granulocytes % 0.6 %; Immature Granulocytes Absolute 0.04 #; Lymphocytes # 1.6 10*3/uL (1.4-4.0); Lymphocytes % 23.5 % (21.3-54.2); Mean Corpuscular HGB Conc 30.5 GM/DL (32-36); Mean Corpuscular Volume 88.9 FL (87-102); Mean Platelet Volume 10.4 FL (9.6-12.0); Monocytes # 0.8 10*3/uL (0.11-0.8); Neutrophils % 49.2 % (38.7-73.9); Platelet Count 301 T/CUMM (130-400); Red Cell Distribution Width 15.9 % (9.3-17.3); White Blood Count 6.8 T/CUMM (4-12)
[2022-08-13 08:20] LABS: Calcium 8.9 MG/DL (8.5-10.1); Osmolality,Calculated 262.1 MOS/KG (273-304)
[2022-08-13 08:24] LABS: Eosinophils 14 % (0-10); Hypochromia Slight; Lymphocytes 25 % (20-55); Microcytosis Slight; Platelet Estimate Adequate; Total Cells Counted 100
[2022-08-13 08:28] LABS: Bilirubin,Direct 0.39 MG/DL (0.0-0.20); Bilirubin,Indirect 0.5 MG/DL (0.0-1.0); Bilirubin,Total 0.9 MG/DL (0.20-1.00); Total Protein 6.8 G/DL (6.4-8.2)
[2022-08-13] MEDS: INSULIN REGULAR 100 UNIT/ML SUBCUT SCH ×4 (08:34→21:58)
[2022-08-13] MEDS: LINACLOTIDE 145 MCG CAPSULE PO SCH (08:35)
[2022-08-13] MEDS: SERTRALINE 25 MG TABLET PO SCH (08:35)
[2022-08-13] MEDS: FUROSEMIDE 40 MG/4 ML VIAL IV SCH ×2 (08:36→15:53)
[2022-08-13] MEDS: DOCUSATE SODIUM 100 MG CAPSULE PO SCH ×2 (08:36→21:58)
[2022-08-13] MEDS: POTASSIUM CHLORIDE 20 MEQ TABLET PO SCH ×2 (08:37→21:58)
[2022-08-13] MEDS: metOLazone 5 MG TABLET PO SCH (08:37)
[2022-08-13] MEDS: CHOLECALCIFEROL 1,000 UNIT TABLET PO SCH (08:37)
[2022-08-13] MEDS: FERROUS SULFATE 325 MG TABLET PO SCH (08:37)
[2022-08-13] MEDS: PANTOPRAZOLE 40 MG TABLET PO SCH (08:38)
[2022-08-13] MEDS: ISOSORBIDE MONONITRATE 30 MG TABLET PO SCH (08:38)
[2022-08-13] MEDS: VALSARTAN 80 MG TABLET PO SCH (08:38)
[2022-08-13] MEDS: DAPAGLIFLOZIN 10 MG TABLET PO SCH (08:38)
[2022-08-13] MEDS: POLYETHYLENE GLYCOL POWDER 17 GM PACK PO SCH ×2 (08:48→21:55)
[2022-08-13] MEDS: guaiFENesin/DM ER 600-30 MG TABLET PO SCH ×2 (08:48→21:58)
[2022-08-13] MEDS: DILTIAZEM CD 240 MG CAPSULE PO SCH (12:45)
[2022-08-13 13:53] LABS: Free T4 (Free Thyroxine) 1.16 NG/DL (0.76-1.46)
[2022-08-13] MEDS: traMADol 50 MG TABLET PO PRN (15:38)
[2022-08-13] MEDS: INSULIN GLARGINE 100 UNIT/ML SUBCUT SCH (21:56)
[2022-08-13] MEDS: MELATONIN 3 MG TABLET PO PRN (21:58)
[2022-08-13] MEDS: SENNA 8.6 MG TABLET PO SCH (21:58)
[2022-08-14] MEDS: ALBUTEROL 2.5 MG/3 ML NEB RESP TX SCH ×4 (02:15→19:20)
[2022-08-14 04:21] LABS: Basophils # 0.1 10*3/uL (0.0-0.2); Basophils % 1.2 % (0.0-0.8); Eosinophils % 14.4 % (0.00-10.9); Hematocrit 35.8 VOL% (35.7-47.0); Hemoglobin 11.2 GM/DL (12.0-16.0); Immature Granulocytes % 0.6 %; Immature Granulocytes Absolute 0.04 #; Lymphocytes # 1.7 10*3/uL (1.4-4.0); Lymphocytes % 23.1 % (21.3-54.2); Mean Corpuscular HGB Conc 31.3 GM/DL (32-36); Mean Corpuscular Volume 85.9 FL (87-102); Mean Platelet Volume 9.7 FL (9.6-12.0); Monocytes # 1.1 10*3/uL (0.11-0.8); Monocytes % 15.5 % (1.7-12.7); Neutrophils % 45.2 % (38.7-73.9); Platelet Count 415 T/CUMM (130-400); Red Blood Count 4.17 MC/CUMM (3.8-5.5); Red Cell Distribution Width 15.7 % (9.3-17.3); White Blood Count 7.2 T/CUMM (4-12)
[2022-08-14 04:47] LABS: Eosinophils 22 % (0-10); Hypochromia Slight; Lymphocytes 23 % (20-55); Microcytosis Slight; Platelet Estimate Adequate; Total Cells Counted 100
[2022-08-14 04:49] LABS: Albumin 3.1 G/DL (3.4-5.0); Bilirubin,Total 0.9 MG/DL (0.20-1.00); Calcium 9.3 MG/DL (8.5-10.1); Osmolality,Calculated 275.7 MOS/KG (273-304); Potassium 4.7 MMOL/L (3.5-5.1); Total Protein 7.3 G/DL (6.4-8.2)
[2022-08-14] MEDS: INSULIN REGULAR 100 UNIT/ML SUBCUT SCH ×4 (08:02→21:17)
[2022-08-14] MEDS: POLYETHYLENE GLYCOL POWDER 17 GM PACK PO SCH ×2 (08:02→21:20)
[2022-08-14] MEDS: POTASSIUM CHLORIDE 20 MEQ TABLET PO SCH ×2 (08:04→21:16)
[2022-08-14] MEDS: PANTOPRAZOLE 40 MG TABLET PO SCH (08:04)
[2022-08-14] MEDS: guaiFENesin/DM ER 600-30 MG TABLET PO SCH ×2 (08:04→21:16)
[2022-08-14] MEDS: SERTRALINE 25 MG TABLET PO SCH (08:04)
[2022-08-14] MEDS: FERROUS SULFATE 325 MG TABLET PO SCH (08:04)
[2022-08-14] MEDS: DOCUSATE SODIUM 100 MG CAPSULE PO SCH ×2 (08:05→21:16)
[2022-08-14] MEDS: DILTIAZEM CD 240 MG CAPSULE PO SCH (08:05)
[2022-08-14] MEDS: CHOLECALCIFEROL 1,000 UNIT TABLET PO SCH (08:05)
[2022-08-14] MEDS: DAPAGLIFLOZIN 10 MG TABLET PO SCH (08:05)
[2022-08-14] MEDS: metOLazone 5 MG TABLET PO SCH (08:05)
[2022-08-14] MEDS: LINACLOTIDE 145 MCG CAPSULE PO SCH (08:06)
[2022-08-14] MEDS: ISOSORBIDE MONONITRATE 30 MG TABLET PO SCH (08:06)
[2022-08-14] MEDS: FUROSEMIDE 40 MG/4 ML VIAL IV SCH (08:06)
[2022-08-14] MEDS: VALSARTAN 80 MG TABLET PO SCH (08:07)
[2022-08-14] MEDS: traMADol 50 MG TABLET PO PRN (18:45)
[2022-08-14] MEDS: SENNA 8.6 MG TABLET PO SCH (21:16)
[2022-08-14] MEDS: INSULIN GLARGINE 100 UNIT/ML SUBCUT SCH (21:17)
[2022-08-14] MEDS: MELATONIN 3 MG TABLET PO PRN (21:20)
[2022-08-15] MEDS: ALBUTEROL 2.5 MG/3 ML NEB RESP TX SCH ×4 (00:20→19:05)
[2022-08-15 05:37] LABS: Basophils # 0.1 10*3/uL (0.0-0.2); Basophils % 0.9 % (0.0-0.8); Eosinophils # 0.9 10*3/uL (0.0-0.87); Eosinophils % 13.5 % (0.00-10.9); Hematocrit 36.5 VOL% (35.7-47.0); Hemoglobin 11.3 GM/DL (12.0-16.0); Immature Granulocytes % 0.6 %; Immature Granulocytes Absolute 0.04 #; Lymphocytes # 1.5 10*3/uL (1.4-4.0); Lymphocytes % 23.5 % (21.3-54.2); Mean Platelet Volume 9.8 FL (9.6-12.0); Monocytes % 15.8 % (1.7-12.7); Neutrophils % 45.7 % (38.7-73.9); Platelet Count 412 T/CUMM (130-400); Red Blood Count 4.15 MC/CUMM (3.8-5.5); Red Cell Distribution Width 15.5 % (9.3-17.3); White Blood Count 6.5 T/CUMM (4-12)
[2022-08-15 05:49] LABS: Calcium 9.3 MG/DL (8.5-10.1); Osmolality,Calculated 274.4 MOS/KG (273-304); Potassium 4.4 MMOL/L (3.5-5.1)
[2022-08-15 06:11] LABS: Eosinophils 13 % (0-10); Hypochromia Slight; Lymphocytes 16 % (20-55); Total Cells Counted 100
[2022-08-15 06:12] LABS: Microcytosis Slight; Ovalocytes Slight
[2022-08-15 06:13] LABS: Platelet Estimate Increased
[2022-08-15] MEDS: DILTIAZEM CD 240 MG CAPSULE PO SCH (09:16)
[2022-08-15] MEDS: guaiFENesin/DM ER 600-30 MG TABLET PO SCH ×2 (09:18→22:19)
[2022-08-15] MEDS: POTASSIUM CHLORIDE 20 MEQ TABLET PO SCH ×2 (09:18→22:19)
[2022-08-15] MEDS: CHOLECALCIFEROL 1,000 UNIT TABLET PO SCH (09:18)
[2022-08-15] MEDS: metOLazone 5 MG TABLET PO SCH (09:19)
[2022-08-15] MEDS: DOCUSATE SODIUM 100 MG CAPSULE PO SCH ×2 (09:19→22:19)
[2022-08-15] MEDS: ISOSORBIDE MONONITRATE 30 MG TABLET PO SCH (09:20)
[2022-08-15] MEDS: FERROUS SULFATE 325 MG TABLET PO SCH (09:20)
[2022-08-15] MEDS: DAPAGLIFLOZIN 10 MG TABLET PO SCH (09:20)
[2022-08-15] MEDS: VALSARTAN 80 MG TABLET PO SCH (09:20)
[2022-08-15] MEDS: SERTRALINE 25 MG TABLET PO SCH (09:21)
[2022-08-15] MEDS: PANTOPRAZOLE 40 MG TABLET PO SCH (09:21)
[2022-08-15] MEDS: POLYETHYLENE GLYCOL POWDER 17 GM PACK PO SCH ×2 (09:22→22:18)
[2022-08-15] MEDS: LINACLOTIDE 145 MCG CAPSULE PO SCH (09:22)
[2022-08-15] MEDS: INSULIN REGULAR 100 UNIT/ML SUBCUT SCH ×4 (09:29→22:18)
[2022-08-15] MEDS: FUROSEMIDE 40 MG/4 ML VIAL IV SCH (09:35)
[2022-08-15] MEDS: INSULIN GLARGINE 100 UNIT/ML SUBCUT SCH (22:18)
[2022-08-15] MEDS: MELATONIN 3 MG TABLET PO PRN (22:19)
[2022-08-15] MEDS: SENNA 8.6 MG TABLET PO SCH (22:22)
[2022-08-16] MEDS: ALBUTEROL 2.5 MG/3 ML NEB RESP TX SCH ×4 (00:05→20:00)
[2022-08-16] MEDS: INSULIN REGULAR 100 UNIT/ML SUBCUT SCH ×3 (09:09→17:39)
[2022-08-16] MEDS ORDERED: DIAZEPAM 5 MG TABLET PO ONE (10:00)
[2022-08-16] MEDS: LINACLOTIDE 145 MCG CAPSULE PO SCH (13:37)
[2022-08-16] MEDS: APIXABAN 2.5 MG TABLET PO SCH (13:38)
[2022-08-16] MEDS: POLYETHYLENE GLYCOL POWDER 17 GM PACK PO SCH (13:38)
[2022-08-16] MEDS: DILTIAZEM CD 240 MG CAPSULE PO SCH (13:42)
[2022-08-16] MEDS: DOCUSATE SODIUM 100 MG CAPSULE PO SCH (13:42)
[2022-08-16] MEDS: POTASSIUM CHLORIDE 20 MEQ TABLET PO SCH (13:42)
[2022-08-16] MEDS: ISOSORBIDE MONONITRATE 30 MG TABLET PO SCH (13:42)
[2022-08-16] MEDS: FERROUS SULFATE 325 MG TABLET PO SCH (13:42)
[2022-08-16] MEDS: DAPAGLIFLOZIN 10 MG TABLET PO SCH (13:43)
[2022-08-16] MEDS: VALSARTAN 80 MG TABLET PO SCH (13:43)
[2022-08-16] MEDS: PANTOPRAZOLE 40 MG TABLET PO SCH (13:43)
[2022-08-16] MEDS: guaiFENesin/DM ER 600-30 MG TABLET PO SCH (13:43)
[2022-08-16] MEDS: CHOLECALCIFEROL 1,000 UNIT TABLET PO SCH (13:43)
[2022-08-16] MEDS: SERTRALINE 25 MG TABLET PO SCH (13:43)
[2022-08-16] MEDS: metOLazone 5 MG TABLET PO SCH (13:43)
[2022-08-16] MEDS: ACETAMINOPHEN 325 MG TABLET PO PRN (13:45)
[2022-08-16] MEDS: FUROSEMIDE 40 MG/4 ML VIAL IV SCH (14:02)
[2022-08-16 17:39] VITALS: BP 123/74
== END 2022-08-16 19:05 | disposition home or self-care (01) | DRG 291 ==
LOC: N.ED 18:46 → N.EDINP 08-08 02:09 → SUATTDRO 08-08 02:09 → N.TELES 08-08 08:40
PROVIDERS: ADMIT Hospitalist; ATTEND Internal Medicine

== ENCOUNTER 2022-10-16 10:03 | Inpatient (IN) ==
[2022-10-16] MEDS ORDERED: SODIUM CHLORIDE 0.9% 2,000 ML IV STA (10:11)
[2022-10-16] MEDS ORDERED: SODIUM CHLORIDE 0.9% 1,000 ML IV STA (10:13)
[2022-10-16 10:30] LABS: Arterial Base Excess iSTAT 10 MMOL/L (-2.5-2.5); Arterial Bicarbonate iSTAT 34.7 MMOL/L (20-26); Arterial O2 Saturation iSTAT 95 % (95-100); Arterial PCO2 iSTAT 46 MM HG (35-48); Arterial PO2 iSTAT 69 MM HG (80-95); Arterial Total CO2 iSTAT 36 MMO/L (23-27)
[2022-10-16 11:10] LABS: Bilirubin,Urine Negative (Negative); Blood, Urine Negative (Negative); Glucose,Urine (UA) 500 mg/dL (Negative); Ketones,Urine Trace mg/dL (Negative); Nitrite,Urine Negative (Negative); Protein,Urine Negative (Negative); RBC,Urine <1 /HPF (0-4); Squamous Epithelial Cell,Urine Occasional /HPF (0-10); Urine Appearance Clear (Clear); Urine Color Yellow (Yellow); Urine Urobilinogen 0.2 eU/dL (<2.0)
[2022-10-16 11:19] LABS: Barbiturates Screen,Urine Negative (Negative); Benzodiazepines Screen,Urine Negative (Negative); Cannabinoid Screen,Urine Negative (Negative); Opiate Screen,Urine Positive (Negative); Phencyclidine Screen,Urine Negative (Negative)
[2022-10-16 11:42] LABS: Basophils % 0.2 % (0.0-0.8); Hematocrit 41.5 VOL% (35.7-47.0); Hemoglobin 14.1 GM/DL (12.0-16.0); Immature Granulocytes % 0.6 %; Immature Granulocytes Absolute 0.07 #; Lymphocytes # 0.7 10*3/uL (1.4-4.0); Lymphocytes % 5.8 % (21.3-54.2); Mean Corpuscular Volume 78.7 FL (87-102); Mean Platelet Volume 9.1 FL (9.6-12.0); Monocytes # 0.7 10*3/uL (0.11-0.8); Monocytes % 5.7 % (1.7-12.7); Neutrophils % 87.7 % (38.7-73.9); Platelet Count 366 T/CUMM (130-400); Red Blood Count 5.27 MC/CUMM (3.8-5.5); White Blood Count 12.56 T/CUMM (4-12)
[2022-10-16 11:51] LABS: INR 0.9; PT Patient Result 10.3 SECS (10.1-12.1)
[2022-10-16 13:14] LABS: Albumin 3.4 G/DL (3.4-5.0); Bilirubin,Total 0.6 MG/DL (0.20-1.00); Calcium 9.6 MG/DL (8.5-10.1); Potassium 3.2 MMOL/L (3.5-5.1); Total Protein 7.7 G/DL (6.4-8.2)
[2022-10-16 13:26] LABS: Osmolality,Calculated 302.1 MOS/KG (273-304)
[2022-10-16] MEDS ORDERED: POTASSIUM CHLORIDE RIDER 20 MEQ/100 ML PREMIX IV STA (13:38)
[2022-10-16] MEDS ORDERED: INSULIN REGULAR 100 UNIT/ML IV STA (13:38)
[2022-10-16] MEDS ORDERED: POTASSIUM CHLORIDE 20 MEQ TABLET PO STA (13:38)
[2022-10-16] MEDS: POTASSIUM CHLORIDE RIDER 10 MEQ/100 ML PREMIX IV SCH ×2 (14:44→15:44)
[2022-10-16 15:17] LABS: Calcium 9.5 MG/DL (8.5-10.1); Osmolality,Calculated 299.2 MOS/KG (273-304); Potassium 3.1 MMOL/L (3.5-5.1)
[2022-10-16] MEDS ORDERED: ACETAMINOPHEN 325 MG TABLET PO PRN (15:33)
[2022-10-16] MEDS ORDERED: ONDANSETRON 4 MG/2 ML VIAL IV PRN (15:33)
[2022-10-16] MEDS ORDERED: guaiFENesin/DM ER 600-30 MG TABLET PO PRN (15:33)
[2022-10-16] MEDS ORDERED: DOCUSATE SODIUM 100 MG CAPSULE PO PRN (15:33)
[2022-10-16] MEDS ORDERED: GLUCAGON 1 MG VIAL IM PRN (15:33)
[2022-10-16] MEDS ORDERED: PROMETHAZINE 25 MG/1 ML VIAL IM PRN (15:33)
[2022-10-16] MEDS ORDERED: BISACODYL 5 MG TABLET PO PRN (15:33)
[2022-10-16] MEDS ORDERED: DEXTROSE 10% 250 ML BAG IV PRN (15:45)
[2022-10-16] MEDS: SODIUM CHLORIDE 0.9% 1,000 ML IV SCH (16:12)
[2022-10-16] MEDS: INSULIN LISPRO 100 UNIT/ML SUBCUT SCH ×2 (18:29→22:06)
[2022-10-16] MEDS: DEXAMETHASONE INJ 4 MG in SODIUM CHLORIDE 0.9% 50 ML IV SCH (22:00)
[2022-10-17] MEDS: SODIUM CHLORIDE 0.9% 1,000 ML IV SCH ×4 (01:08→23:54)
[2022-10-17] MEDS: INSULIN LISPRO 100 UNIT/ML SUBCUT SCH ×6 (02:52→22:01)
[2022-10-17 04:09] LABS: Basophils % 0.1 % (0.0-0.8); Hematocrit 39.6 VOL% (35.7-47.0); Hemoglobin 13.3 GM/DL (12.0-16.0); Immature Granulocytes % 0.6 %; Immature Granulocytes Absolute 0.06 #; Lymphocytes # 0.6 10*3/uL (1.4-4.0); Lymphocytes % 6.1 % (21.3-54.2); Mean Corpuscular HGB Conc 33.6 GM/DL (32-36); Mean Corpuscular Volume 81.1 FL (87-102); Mean Platelet Volume 9.3 FL (9.6-12.0); Monocytes # 0.4 10*3/uL (0.11-0.8); Monocytes % 4.5 % (1.7-12.7); Neutrophils % 88.7 % (38.7-73.9); Platelet Count 311 T/CUMM (130-400); Red Blood Count 4.88 MC/CUMM (3.8-5.5); White Blood Count 9.36 T/CUMM (4-12)
[2022-10-17 04:38] LABS: Albumin 2.9 G/DL (3.4-5.0); Bilirubin,Total 0.4 MG/DL (0.20-1.00); Calcium 8.7 MG/DL (8.5-10.1); Osmolality,Calculated 297.1 MOS/KG (273-304); Potassium 3.2 MMOL/L (3.5-5.1); Risk Ratio 3.56; Thyroid Stimulating Hormone 0.653 uIU/ml (0.358-3.74); Total Protein 6.6 G/DL (6.4-8.2); VLDL Cholesterol 21.2 MG/DL
[2022-10-17] MEDS ORDERED: POTASSIUM CHLORIDE 20 MEQ TABLET PO ONE (08:23)
[2022-10-17] MEDS: PANTOPRAZOLE 40 MG VIAL IV SCH (09:00)
[2022-10-17] MEDS: DEXAMETHASONE INJ 4 MG in SODIUM CHLORIDE 0.9% 50 ML IV SCH ×2 (09:01→21:44)
[2022-10-17] MEDS: INSULIN GLARGINE 100 UNIT/ML SUBCUT SCH (13:29)
[2022-10-17] MEDS ORDERED: HEPARIN LOCK FLUSH 500 UNIT/5 ML SYRINGE IV ONE (15:04)
[2022-10-18] MEDS: INSULIN LISPRO 100 UNIT/ML SUBCUT SCH ×3 (02:16→11:29)
[2022-10-18] MEDS: SODIUM CHLORIDE 0.9% 1,000 ML IV SCH (03:51)
[2022-10-18 04:48] LABS: Basophils % 0.1 % (0.0-0.8); Hematocrit 39.1 VOL% (35.7-47.0); Immature Granulocytes % 0.6 %; Immature Granulocytes Absolute 0.05 #; Lymphocytes # 0.6 10*3/uL (1.4-4.0); Lymphocytes % 7.8 % (21.3-54.2); Mean Corpuscular HGB Conc 33.2 GM/DL (32-36); Mean Corpuscular Volume 82.7 FL (87-102); Mean Platelet Volume 9.2 FL (9.6-12.0); Monocytes # 0.4 10*3/uL (0.11-0.8); Monocytes % 5.2 % (1.7-12.7); Neutrophils % 86.3 % (38.7-73.9); Platelet Count 248 T/CUMM (130-400); Red Blood Count 4.73 MC/CUMM (3.8-5.5); Red Cell Distribution Width 13.9 % (9.3-17.3); White Blood Count 8.23 T/CUMM (4-12)
[2022-10-18 05:10] LABS: Albumin 2.6 G/DL (3.4-5.0); Bilirubin,Total 0.4 MG/DL (0.20-1.00); Calcium 8.3 MG/DL (8.5-10.1); Osmolality,Calculated 287.5 MOS/KG (273-304); Potassium 3.4 MMOL/L (3.5-5.1); Total Protein 6.2 G/DL (6.4-8.2)
[2022-10-18 07:59] VITALS: BP 156/95
[2022-10-18] MEDS: INSULIN GLARGINE 100 UNIT/ML SUBCUT SCH (09:29)
[2022-10-18] MEDS: PANTOPRAZOLE 40 MG VIAL IV SCH (09:29)
[2022-10-18] MEDS: DEXAMETHASONE INJ 4 MG in SODIUM CHLORIDE 0.9% 50 ML IV SCH (09:30)
== END 2022-10-18 11:59 | disposition home health service (06) | DRG 637 ==
LOC: N.ED 10:03 → N.EDINP 15:53 → N.TELEN 17:05
PROVIDERS: ADMIT Internal Medicine; ATTEND Internal Medicine